=== PATIENT | male | born 1960 | race Caucasian/White ===

== ENCOUNTER 2019-12-31 04:08 | Emergency (ER) | payer OTHER | END 2019-12-31 04:35 | disposition other institution (70) | LOC: ED 04:08 | DX: Z02.89 Encounter for other administrative examinations (principal) ==

== ENCOUNTER 2019-12-31 04:08 | Emergency (ER) | payer SELFPAY ==
[~2019-12-31] VITALS: Ht 172.7 cm; Wt 74.8 kg
[2019-12-31 04:10] VITALS: Ht 172.7 cm; Wt 74.8 kg
[2019-12-31 04:35] VITALS: BP 128/86
== END 2019-12-31 04:35 | disposition other institution (70) ==
LOC: ED 04:08
DX: R22.0 Localized swelling, mass and lump, head (principal); Z13.9 Encounter for screening, unspecified